=== PATIENT | female | born 1990 | race Caucasian/White ===

== ENCOUNTER → 2017-05-09 | Outpatient (CLI) | payer OTHER ==
[~2017-05-09] MED LIST: BACITRACIN15 GM TP; BENADRYL25 M1 PO; CELEXA20 MG PO; CIPRO PO; CLEOCIN HCL300 M1 PO; KEFLEX500 MG PO; LORTAB 7.5-5001 TAB PO; MULTIVITAMIN1 UDCAP PO; NO MEDICATIONS; OMEPRAZOLE40 M1 PO; PEPCID PO; PREDNISONE PO; PRENATAL1 TA1; PROVERA PO; TOPAMAX PO; TRI-LO-SPRINTE1 EAC1 PO; TYLENOL #3 PO; ULTRAM PO
== END | disposition home or self-care (01) ==
LOC: CBAR 09:28
DX: Z01.812 Encounter for preprocedural laboratory examination (principal); E66.01 Morbid (severe) obesity due to excess calories
CPT/HCPCS: 36415; 84443; 86677; G0463

== ENCOUNTER → 2017-05-19 | Outpatient (CLI) | payer OTHER ==
--- NOTE | ~2017-05-19 | EKG ---
PATIENT: GT DIEZ UNIT #: [id number] Ventricular Rate: 73 BPM Atrial Rate: 73 BPM P-R Interval: 134 ms QRS Duration: 78 ms Q-T Interval: 396 ms QTC Calculation(Bezet): 436 ms P Hancock: 35 degrees Calculated R Hancock: 46 degrees Calculated T Hancock: 8 degrees Diagnosis Line: Normal sinus rhythm Diagnosis Line: Normal ECG Diagnosis Line: When compared with ECG of 05-SEP-2010 01:25, Diagnosis Line: No significant change was found Diagnosis Line: Confirmed by KOLTON GARCIA MD ([id number]) on 05/24/2017 Diagnosis Line: 2:31:53 PM INTERPRETING MD: RADHA BACK
--- NOTE | ~2017-05-19 | CR97 ---
[facility] A Service of [facility] & [facility] RADIOLOGY TEXT RESULTS PATIENT: GT DIEZ LOCATION: [facility] : 92 UNIT #: [id number] AGE: [address]: Soy Torres MD SEX: F ORDER DR: [id number] [facility] [address] [place], [place] [address] [id number] O MR#: [id number] Acc #: [id number] NAME: GT DIEZ : 1990 SEX: F STUDY DATE/TIME: 05/19/2017 8:20 UNIT: [facility] ROOM: STUDY DESCRIPTION: CR Esophagram Attending Physician: Soy Torres M.D. Referring Physician: Soy Torres M.D. Ordering Physician: Soy Torres M.D. Primary Care Physician: Angie Quezada A.P.R.N. MEDICAL IMAGING REPORT This report is preliminary unless electronic signature is present EXAM Esophagram, 05/19. INDICATIONS Preop exam for gastric band placement. FINDINGS Single contrast esophagram was performed. 22 images were obtained. Fluoro time is 30 seconds. The esophagus shows normal motility. No rings or strictures are identified. There is no hiatal hernia. IMPRESSION Normal single contrast esophagram. Dictated by... Neel Ríos Jr., M.D. THIS IS AN ELECTRONICALLY VERIFIED REPORT Neel Ríos Jr., M.D. at 05/22/2017 5:53 AM JASS/ruben TD: 05/19/2017 19:46 JOB #: [id number] MEDICAL IMAGING REPORT Page 1 of 1 COPY
--- NOTE | ~2017-05-19 | CR63 ---
[facility] A Service of [facility] & [facility] RADIOLOGY TEXT RESULTS PATIENT: GT DIEZ LOCATION: [facility] : 92 UNIT #: [id number] AGE: [address]: Soy Torres MD SEX: F ORDER DR: [id number] [facility] [address] [place], [place] [address] [id number] O MR#: [id number] Acc #: [id number] NAME: GT DIEZ. : 1990 SEX: F STUDY DATE/TIME: 05/19/2017 8:20 UNIT: [facility] ROOM: STUDY DESCRIPTION: CR Chest 2 View Attending Physician: Soy Torres M.D. Referring Physician: Soy Torres M.D. Ordering Physician: Soy Torres M.D. Primary Care Physician: Angie Quezada A.P.R.N. MEDICAL IMAGING REPORT This report is preliminary unless electronic signature is present EXAM Chest 05/19/2017 HISTORY 26-year-old woman preop clearance laparoscopic adjustable gastric band placement with possible repair of paraesophageal hernia. Past smoker with history of asthma. COMPARISON Chest 02/23/2013. FINDINGS PA and lateral chest views show normal cardiac size and configuration. Hilar structures and mediastinal contours are preserved. Bilateral lungs are expanded and clear. IMPRESSION Negative chest. Dictated by... Dale Flowers M.D. THIS IS AN ELECTRONICALLY VERIFIED REPORT Dale Flowers M.D. at 05/20/2017 3:01 PM ED/priyank TD: 05/19/2017 16:35 JOB #: [id number] MEDICAL IMAGING REPORT Page 1 of 1 COPY
[2017-05-19 10:04] LABS: MEAN CELL VOLUME 77.9 FL (83-96); MEAN CORPUSCULAR HEMOGLOBIN 24.6 PG (28-34); MEAN CORPUSCULAR HGB CONC 31.6 g/dL (30-36); MEAN PLATELET VOLUME 8.6 FL (6.5-11.5); RED BLOOD COUNT 5.27 X10e (3.90-5.30); RED CELL DISTRIBUTION WIDTH 15.4 % (11.0-15.5)
[2017-05-19 10:22] LABS: ALBUMIN SERUM 3.7 g/dL (3.5-5.0); BILIRUBIN,TOTAL 0.9 mg/dL (0.2-2.0); CREATININE SERUM 0.5 mg/dL (0.6-1.4); GLOM FILT RATE Estimated 135.5 mL/min (>60); POTASSIUM 4.1 mmol/L (3.5-5.1); PROTEIN TOTAL SERUM 6.8 g/dL (6.0-8.3)
== END | disposition home or self-care (01) ==
LOC: CRAD 07:59 → CAMB 09:30
PROVIDERS: Surgery
DX: Z01.818 Encounter for other preprocedural examination (principal)
CPT/HCPCS: 36415; 71020; 74220; 80053; 80061; 84443; 85027; 93005

== ENCOUNTER → 2017-05-31 | Day surgery (SDC) | payer OTHER ==
--- NOTE | ~2017-05-31 | CR7 ---
[facility] A Service of [facility] & [facility] RADIOLOGY TEXT RESULTS PATIENT: GT DIEZ LOCATION: [facility] : 92 UNIT #: [id number] AGE: [address]: Soy Torres MD SEX: F ORDER DR: [id number] [facility] [address] [place], [place] [address] [id number] O MR#: [id number] Acc #: [id number] NAME: GT DIEZ : 1990 SEX: F STUDY DATE/TIME: 05/31/2017 09:50 UNIT: [facility] ROOM: STUDY DESCRIPTION: CR Abdomen Single AP View Attending Physician: Soy Torres M.D. Ordering Physician: Soy Torres M.D. Primary Care Physician: Angie Quezada A.P.R.N. MEDICAL IMAGING REPORT This report is preliminary unless electronic signature is present EXAM Abdomen single view, 05/31/2017 09:50 hours HISTORY Morbid obesity, postop Lap-Band placement today. COMPARISON Preop esophagram, 05/19/2017 FINDINGS Single supine view of the abdomen excludes the right flank and the pelvis. There is a Lap-Band present lying to the left of T11 oriented at 66 degrees from vertical. Radiopaque tubing courses inferiorly to a port overlying the left superior aspect of the sacroiliac joint. IMPRESSION There is a new Lap-Band present projecting to the left of T11 oriented at 66 degrees from vertical. Radiopaque tubing courses inferiorly to a port overlying the left sacroiliac joint superiorly. STAT * RESULT Dictated by... Addis Dotson M.D. THIS IS AN ELECTRONICALLY VERIFIED REPORT Addis Dotson M.D. at 05/31/2017 2:29 PM [place] TD: 05/31/2017 10:01 JOB #: [id number] MEDICAL IMAGING REPORT [facility] A Service of [facility] & [facility] RADIOLOGY TEXT RESULTS PATIENT: GT DIEZ LOCATION: [facility] #: [id number] : [birth year] UNIT #: [id number] AGE: [address]: Soy Torres MD SEX: F ORDER DR: Page 1 of 1 COPY
--- NOTE | ~2017-05-31 | OR ---
Unit #: [id number] #: [id number] Patient: GT DIEZ [id number] [address] [address] [id number] O MR#: [id number] NAME: GT DIEZ ROOM: Date of Procedure: 05/31/2017 Admission Date: 05/31/2017 Surgeon: Soy Torres M.D. : 1990 Attending Physician: Soy Torres M.D. Primary Care Physician: Angie Quezada A.P.R.N. OPERATIVE REPORT PREOPERATIVE DIAGNOSIS Chronic morbid obesity, BMI of 35. POSTOPERATIVE DIAGNOSES 1. Chronic morbid obesity, BMI of 35. 2. Paraesophageal hiatal hernia. PROCEDURES PERFORMED 1. Laparoscopic adjustable gastric band. 2. Laparoscopic paraesophageal hiatal hernia repair. ASSISTANT Silviano Kitchen M.D. ANESTHESIA General endotracheal anesthesia. ESTIMATED BLOOD LOSS Minimal. IV FLUIDS 800 crystalloid. COMPLICATIONS None. INDICATIONS FOR PROCEDURE The patient is a 27-year-old with chronic morbid obesity. DESCRIPTION OF PROCEDURE The patient was taken to the operating room and placed in supine position. General anesthesia was induced. The abdomen was prepped and draped. A 3-cm incision was then made left of the midline. A 10-mm Visiport was then placed intraabdominal under direct vision. The abdomen was insufflated to 15 mmHg with CO2. The patient was then placed in a steep reversed Trendelenburg. General inspection of the abdomen revealed what appeared to be a paraesophageal hernia. This was identified with a defect at the diaphragm using anterior palpation with the instrument. We then made a small incision in the subxiphoid region. A Chani liver retractor was then placed intraabdominal and used to retract the left lobe of the liver upward to further expose the paraesophageal hernia and GE junction. I then placed a 5-mm port in the right upper quadrant, a 10-mm Unit #: [id number] #: [id number] Patient: GT DIEZ port in the left upper quadrant, and another 5-mm port in the left lower quadrant. The stomach was retracted medial and downward. Upon retracting the stomach, we took down the paraesophageal ligament, exposing the right and left eusebio at the paraesophageal hernia. Any hernia sac was reduced. We then repaired the paraesophageal hernia using interrupted #0 Ethibond sutures in a czhltz-cz-nksgb type fashion. This formed a snug repair to the anterior esophagus. We then retracted the stomach medially and further exposed the angle of His using Bovie electrocautery. The stomach was then retracted laterally. We then took down the hepatogastric ligament with Bovie electrocautery. This exposed the right eusebio. Using blunt dissection, I created a retrogastric tunnel from this point to the angle of His. The band was then placed intraabdominal through the 10-mm port site. This was then brought through the retrogastric tunnel in a pars flaccida technique. The band was then closed anteriorly to form a 20-mL to 25-mL anterior gastric pouch. The fundus was then secured to the anterior pouch to prevent movement around the stomach using two interrupted #0 Ethibond sutures. A third suture was then used as a gathering stitch from the lesser curve to the anterior stomach, gathering and imbricating the remaining fundus of the stomach. The tubing was then brought out through the midline 10-mm port site. All ports and the Chani liver retractor were removed under direct vision with no evidence of abdominal hemorrhage. A polypropylene mesh was then secured to the posterior face of the laparoscopic band port. This was secured using #0 Ethibond suture. This was then cut to shape. The port was then connected to the tubing and placed into a subcutaneous pocket just anterior to the rectus sheath. Its position was then confirmed. All tubing was then placed intraabdominal. The wounds were then closed with interrupted 4-0 Vicryl. The patient tolerated the procedure well and was sent to the recovery room in good condition. Dictated by... Thomas Michelle/julio TD: 06/01/2017 06:27 JOB #: [id number] OPERATIVE REPORT Page 1 of 1 X Soy Torres MD PROCEDURE OPERATIVE NOTE
== END | disposition home or self-care (01) ==
LOC: CSUR 07:20
DX: E66.01 Morbid (severe) obesity due to excess calories (principal); Z68.35 Body mass index [BMI] 35.0-35.9, adult; K21.9 Gastro-esophageal reflux disease without esophagitis; K44.9 Diaphragmatic hernia without obstruction or gangrene; Z72.4 Inappropriate diet and eating habits; K58.9 Irritable bowel syndrome, unspecified; F32.9 Major depressive disorder, single episode, unspecified; F41.9 Anxiety disorder, unspecified; J45.909 Unspecified asthma, uncomplicated; Z79.3 Long term (current) use of hormonal contraceptives; Z79.899 Other long term (current) drug therapy; Z87.891 Personal history of nicotine dependence; Z98.51 Tubal ligation status; Z88.6 Allergy status to analgesic agent; Z88.2 Allergy status to sulfonamides; Z91.040 Latex allergy status
CPT/HCPCS: 74000; 84703; C1781; J0330; J0690; J1650; J1885; J2250; J2405; J2710; J3010